=== PATIENT | female | born 1980 | race Caucasian/White ===

== ENCOUNTER 2017-03-26 18:07 | Emergency (ER) | payer OTHER ==
[~2017-03-26] VITALS: Ht 160 cm; Wt 83.9 kg
[~2017-03-26 18:07] MED LIST: LEVO50TA86 PO; METF-410 PO; OXYC-865 PO; PROM-110 PO
[2017-03-26] MEDS ORDERED: DULA0.75 (18:20)
--- NOTE | 2017-03-26 18:23 | ER Report ---
History and Physical Time Seen By MD: 18:22 Hx. of Stated Complaint: PT NOTED EPIGATRIC PAIN, AT 1720 TODAY. STATES IT RADIATES AROUND BOTH SIDES TO BACK. ONE EPISODE OF N/V HPI/ROS CHIEF COMPLAINT: Upper abdominal pain, nausea HISTORY OF PRESENT ILLNESS: 36-year-old female with a history of GERD, presents ambulatory to the ER with sudden onset of severe epigastric pain radiating around her upper abdomen at approximately 5 PM this evening. She developed severe nausea. She describes a burning sensation radiating up through her chest. Patient denies fever or chills. Patient reports this is a very similar episode. Her previous visit to the ER back in July of this year. She denies consumption of spicy or greasy food. She denies alcohol ingestion. She denies caffeine to excess. She notes no alleviating or exacerbating factors to her pain. REVIEW OF SYSTEMS: Respiratory: No cough, no dyspnea. Cardiovascular: No chest pain, no palpitations. Gastrointestinal: As above Musculoskeletal: As above Allergies: Coded Allergies: No Known Drug Allergies (Unverified , 03/26/17) Home Meds Active Scripts Ondansetron Hcl (ZOFRAN) 4 Mg Tablet, 4 MG PO Q6H Y for NAUSEA/VOMITING, #12 Prov:SYDNEY MAHMOOD DO 03/26/17 Oxycodone Hcl/Acetaminophen (PERCOCET 5-325 MG TABLET) 1 Each Tablet, 1 EACH PO Q4-6H Y for PAIN, #15 Prov:ELASDYNEY Pugh DO 03/26/17 Reported Medications Dulaglutide (Trulicity) 0.75 Mg/0.5 Ml Pen.injctr, WEEKLY 03/26/17 Metformin Hcl (METFORMIN HCL) 500 Mg Tablet, 2 TAB PO BID, TAB 08/07/16 Levothyroxine Sodium (LEVOTHYROXINE SODIUM) 50 Mcg Tablet, 100 MCG PO QDAY, TAB 08/07/16 Discontinued Scripts Promethazine Hcl (PROMETHAZINE HCL) 25 Mg Tablet, 25 MG PO Q4H Y for NAUSEA/ VOMITING, #12 TAB Prov:SYDNEY MAHMOOD DO 08/08/16 Oxycodone Hcl/Acetaminophen (PERCOCET 5-325 MG TABLET) 1 Each Tablet, 1 EACH PO Q4-6H Y for PAIN, #12 Prov:SYDNEY MAHMOOD DO 08/08/16 Past Medical/Surgical History Past medical history: Hypothyroidism, polycystic ovarian syndrome, type II diabetes, GERD Reviewed Nurses Notes: Yes Old Medical Records Reviewed: Yes Constitutional Vital Sign - Last 24 Hours 03/26/17 03/26/17 03/26/17 03/26/17 18:13 18:45 19:00 19:15 Temp 98.0 Pulse 87 89 77 82 Resp 20 B/P (MAP) 127/73 117/63 (81) Pulse Ox 94 76 95 89 O2 Delivery Room Air 03/26/17 03/26/17 03/26/17 19:30 19:45 20:15 Pulse 84 91 88 Resp 14 B/P (MAP) 107/63 (78) 111/56 (74) Pulse Ox 87 84 92 O2 Delivery Room Air Physical Exam General Appearance: The patient is alert, has no immediate need for airway protection and no current signs of toxicity. Moderate distress, vital signs stable, afebrile HEENT: Pupils equal and round no injection. Oropharynx without redness or exudate, mucous members are moist Respiratory: Chest is non tender, lungs are clear to auscultation. Cardiac: regular rate and rhythm Gastrointestinal: Abdomen is soft, moderate epigastric tenderness, no masses, bowel sounds normal. Bilateral mild CVA tenderness Musculoskeletal: Neck: Neck is supple and non tender. No lymphadenopathy Extremities have full range of motion and are non tender. Skin: No rashes or lesions. DIFFERENTIAL DIAGNOSIS: After history and physical exam differential diagnosis was considered for abdominal pain including but not limited to appendicitis, cholecystitis, gastritis, pancreatitis, food poisoning, and urinary tract infection. Medical Decision Making Data Points Result Diagram: 03/26/17 18203/26/17 182 Laboratory Hematology Test 03/26/17 18:10 03/26/17 18:25 Urine Color Yellow Urine Clarity Cloudy Urine pH 6.0 pH (4.8-9.5) Urine Specific [place] 1.027 Urine Protein 30 mg/dL (NEGATIVE) Urine Glucose (UA) Negative mg/dL (NEGATIVE) Urine Ketones Trace mg/dL (NEGATIVE) Urine Blood Negative (NEGATIVE) Urine Nitrite Negative (NEGATIVE) Urine Bilirubin Negative (NEGATIVE) Urine Urobilinogen 2.0 mg/dL (0.2-1.9) Urine Leukocyte Esterase Trace (NEGATIVE) Urine RBC 2 /HPF (0-2/HPF) Urine WBC 4 /HPF (0-5/HPF) Urine Squamous Epithelial Cells Many /LPF (</=FEW) Urine Bacteria Few /HPF (NONE-FEW) Urine Mucus Few /HPF (NONE-FEW) Red Blood Count 5.58 M/uL (4.17-5.56) Mean Corpuscular Volume 71.2 fL (80.0-96.0) Mean Corpuscular Hemoglobin 23.0 pg (26.0-33.0) Mean Corpuscular Hemoglobin Concent 32.4 g/dL (32.0-36.0) Red Cell Distribution Width 18.1 % (11.5-14.5) Mean Platelet Volume 9.9 fL (7.2-11.1) Neutrophils (%) (Auto) 55.8 % (39.4-72.5) Lymphocytes (%) (Auto) 32.9 % (17.6-49.6) Monocytes (%) (Auto) 8.0 % (4.1-12.4) Eosinophils (%) (Auto) 2.2 % (0.4-6.7) Basophils (%) (Auto) 1.1 % (0.3-1.4) Nucleated RBC Relative Count (auto) 0.0 /100WBC Neutrophils # (Auto) 6.0 K/uL (2.0-7.4) Lymphocytes # (Auto) 3.5 K/uL (1.3-3.6) Monocytes # (Auto) 0.9 K/uL (0.3-1.0) Eosinophils # (Auto) 0.2 K/uL (0.0-0.5) Basophils # (Auto) 0.1 K/uL (0.0-0.1) Nucleated RBC Absolute Count (auto) 0.00 K/uL Sodium Level 135 mmol/L (137-145) Potassium Level 3.7 mmol/L (3.5-5.0) Chloride Level 98 mmol/L (98-107) Carbon Dioxide Level 28 mmol/L (22-31) Blood Urea Nitrogen 10 mg/dl (7-18) Creatinine 0.50 mg/dl (0.52-1.04) Glomerular Filtration Rate Calc > 60.0 Random Glucose 82 mg/dl (75-110) Calcium Level 9.2 mg/dl (8.4-10.2) Total Bilirubin 0.4 mg/dl (0.2-1.3) Aspartate Amino Transf (AST/SGOT) 44 U/L (0-35) Alanine Aminotransferase (ALT/SGPT) 65 U/L (0-56) Alkaline Phosphatase 95 U/L (0-126) Total Protein 7.4 gm/dl (6.3-8.2) Albumin 3.9 g/dl (3.5-5.0) Amylase Level 101 U/L (0-110) Lipase 450 U/L (23-300) Human Chorionic Gonadotropin, Qual Negative (NEGATIVE) Chemistry Test 03/26/17 18:10 03/26/17 18:25 Urine Color Yellow Urine Clarity Cloudy Urine pH 6.0 pH (4.8-9.5) Urine Specific [place] 1.027 Urine Protein 30 mg/dL (NEGATIVE) Urine Glucose (UA) Negative mg/dL (NEGATIVE) Urine Ketones Trace mg/dL (NEGATIVE) Urine Blood Negative (NEGATIVE) Urine Nitrite Negative (NEGATIVE) Urine Bilirubin Negative (NEGATIVE) Urine Urobilinogen 2.0 mg/dL (0.2-1.9) Urine Leukocyte Esterase Trace (NEGATIVE) Urine RBC 2 /HPF (0-2/HPF) Urine WBC 4 /HPF (0-5/HPF) Urine Squamous Epithelial Cells Many /LPF (</=FEW) Urine Bacteria Few /HPF (NONE-FEW) Urine Mucus Few /HPF (NONE-FEW) White Blood Count 10.7 k/uL (4.5-11.0) Red Blood Count 5.58 M/uL (4.17-5.56) Hemoglobin 12.8 g/dL (12.0-16.0) Hematocrit 39.7 % (34.0-47.0) Mean Corpuscular Volume 71.2 fL (80.0-96.0) Mean Corpuscular Hemoglobin 23.0 pg (26.0-33.0) Mean Corpuscular Hemoglobin Concent 32.4 g/dL (32.0-36.0) Red Cell Distribution Width 18.1 % (11.5-14.5) Platelet Count 202 K/uL (150-450) Mean Platelet Volume 9.9 fL (7.2-11.1) Neutrophils (%) (Auto) 55.8 % (39.4-72.5) Lymphocytes (%) (Auto) 32.9 % (17.6-49.6) Monocytes (%) (Auto) 8.0 % (4.1-12.4) Eosinophils (%) (Auto) 2.2 % (0.4-6.7) Basophils (%) (Auto) 1.1 % (0.3-1.4) Nucleated RBC Relative Count (auto) 0.0 /100WBC Neutrophils # (Auto) 6.0 K/uL (2.0-7.4) Lymphocytes # (Auto) 3.5 K/uL (1.3-3.6) Monocytes # (Auto) 0.9 K/uL (0.3-1.0) Eosinophils # (Auto) 0.2 K/uL (0.0-0.5) Basophils # (Auto) 0.1 K/uL (0.0-0.1) Nucleated RBC Absolute Count (auto) 0.00 K/uL Glomerular Filtration Rate Calc > 60.0 Calcium Level 9.2 mg/dl (8.4-10.2) Total Bilirubin 0.4 mg/dl (0.2-1.3) Aspartate Amino Transf (AST/SGOT) 44 U/L (0-35) Alanine Aminotransferase (ALT/SGPT) 65 U/L (0-56) Alkaline Phosphatase 95 U/L (0-126) Total Protein 7.4 gm/dl (6.3-8.2) Albumin 3.9 g/dl (3.5-5.0) Amylase Level 101 U/L (0-110) Lipase 450 U/L (23-300) Human Chorionic Gonadotropin, Qual Negative (NEGATIVE) Urinalysis Test 03/26/17 18:10 Urine Color Yellow Urine Clarity Cloudy Urine pH 6.0 pH (4.8-9.5) Urine Specific [place] 1.027 Urine Protein 30 mg/dL (NEGATIVE) Urine Glucose (UA) Negative mg/dL (NEGATIVE) Urine Ketones Trace mg/dL (NEGATIVE) Urine Blood Negative (NEGATIVE) Urine Nitrite Negative (NEGATIVE) Urine Bilirubin Negative (NEGATIVE) Urine Urobilinogen 2.0 mg/dL (0.2-1.9) Urine Leukocyte Esterase Trace (NEGATIVE) Urine RBC 2 /HPF (0-2/HPF) Urine WBC 4 /HPF (0-5/HPF) Urine Squamous Epithelial Cells Many /LPF (</=FEW) Urine Bacteria Few /HPF (NONE-FEW) Urine Mucus Few /HPF (NONE-FEW) ED Course/Re-evaluation Clinical Indication for ER IV: Hydration, IV Access ED Course Patient was admitted to an examination room. H&P was done. The dental diagnoses was considered. On clinical examination. Patient has moderate epigastric tenderness. She has pain in the back. She has bilateral CVA tenderness. Patient's treated with IV fluids, antiemetics, pain medication in the GI cocktail. Her diagnostic studies return. Elevated lipase of 450 suggesting mild acute pancreatitis. Patient reports feel much better after an additional dose of morphine for pain relief. Patient's discharged home and advised to follow-up with primary care for outpatient ultrasound to rule out gallstones. She denies a history of alcohol as etiology of her pancreatitis. Patient was given perceptions for Percocet and Zofran. She was cautioned return to the ER for any worsening. Decision to Disposition Date: Mar 26, 2017 Decision to Disposition Time: 19:24 Depart Departure Latest Vital Signs Vital Signs Date Time Temp Pulse Resp B/P (MAP) Pulse Ox O2 Delivery O2 Flow Rate FiO2 03/26/17 20:15 88 14 111/56 (74) 92 Room Air 03/26/17 18:13 98.0 Impression: Primary Impression: Pancreatitis Condition: Improved Disposition: HOME OR SELF-CARE Referrals: VINCENT DELGADO MD (PCP) ALPA SALDANA MD, FARRUKH MD New Scripts Ondansetron Hcl (ZOFRAN) 4 Mg Tablet 4 MG PO Q6H Y for NAUSEA/VOMITING, #12 Prov: SYDNEY MAHMOOD DO 03/26/17 Oxycodone Hcl/Acetaminophen (PERCOCET 5-325 MG TABLET) 1 Each Tablet 1 EACH PO Q4-6H Y for PAIN, #15 Prov: SYDNEY MAHMOOD DO 03/26/17 Patient Instructions: Clear Liquid Diet (ED), Pancreatitis (ED) Additional Instructions: Follow clear liquid diet for 24 hours, then advance to the brat diet, bananas, rice, applesauce, toast Avoid fatty food, greasy food vegetables or dairy Follow-up with Dr. Saldana or Alexander for follow-up and outpatient ultrasound to rule out gallstones, their information was provided. Problem Qualifiers Primary Impression: Pancreatitis Chronicity: acute Pancreatitis type: unspecified pancreatitis type Acute pancreatitis complication: no infection or necrosis Qualified Codes: K85.90 - Acute pancreatitis without necrosis or infection, unspecified SYDNEY MAHMOOD DO Mar 26, 2017 18:23
[2017-03-26] MEDS ORDERED: ONDANSETRON 4 MG/2 ML VIAL IVP ONE (18:30)
[2017-03-26] MEDS ORDERED: KETOROLAC 30 MG/ML VIAL IVP ONE (18:30)
[2017-03-26] MEDS ORDERED: LIDOCAINE 2% VISC SLN 15ML UDC PO ONE (18:30)
[2017-03-26] MEDS ORDERED: fentaNYL CITR 100 MCG/2 ML AMP IVP ONE (18:30)
[2017-03-26] MEDS ORDERED: MAG HYD/AL HYD/SIMETH 30ML UDC PO ONE (18:30)
[2017-03-26 18:44] LABS: PLATELET COUNT, AUTOMATED 202 K/uL (150-450)
[2017-03-26] MEDS ORDERED: MORPHINE(*) 4 MG/ML SDV IVP ONE (19:05)
[2017-03-26] MEDS ORDERED: NS(*) 0.9% 1000 ML BAG 1,000 ML IV ONE (19:05)
[2017-03-26] MEDS ORDERED: MORPHINE 4 MG/ML SYR ONE (19:10)
[2017-03-26] MEDS ORDERED: ONDA4TAB97 PO (19:26)
[2017-03-26] MEDS ORDERED: OXYC-865 PO (19:26)
[2017-03-26 20:15] VITALS: BP 111/56
[2017-03-26] MEDS ORDERED: oxyCODONE/ACETAMIN 5/325MG TH 2 TAB/BOTTLE PO ONE (20:25)
[2017-03-26] MEDS ORDERED: ONDANSETRON 4 MG ODT TH SL ONE (20:25)
== END 2017-03-26 20:25 | disposition home or self-care (01) ==
LOC: ER 18:52
DX: K85.90 Acute pancreatitis without necrosis or infection, unspecified (principal)
CPT/HCPCS: 81001; 82150; 83690; 84703; 85025; 96361; 96374; 96375; 99284; J1885; J2270; J2405; J3010; J7030; 82040; 82247; 82310; 82374; 82435; 82565; 82947; 84075; 84132; 84155; 84295; 84450; 84460; 84520

== ENCOUNTER 2017-03-31 21:44 | Emergency (ER) | payer OTHER ==
[~2017-03-31] VITALS: Ht 160 cm; Wt 83.9 kg
[2017-03-31] MEDS: PANTOPRAZOLE SOD(*)40 MG VIAL 40 MG in NS(*) 0.9% 100 ML BAG 100 ML IVPB ONE ×2 (00:20→02:00)
[~2017-03-31 21:44] MED LIST changes: +DULA0.75; +ONDA4TAB97 PO
[2017-03-31] MEDS ORDERED: NS(*) 0.9% 1000 ML BAG 1,000 ML IV ONE (22:06)
--- NOTE | 2017-03-31 22:06 | ER Report ---
History and Physical Time Seen By MD: 22:04 Hx. of Stated Complaint: pt reports severe epigastric pain and back pain; in ER saturday night with same pain and diagnosed with pancreatitis and was told she would need gallbladder out soon HPI/ROS CHIEF COMPLAINT: Epigastric and right upper quadrant pain HISTORY OF PRESENT ILLNESS: 36-year-old female returns complaining of worsening pain after being seen here 4 days ago with mild pancreatitis. She was discharged home with antiemetics and pain medication and advised a clear liquid diet. Patient was advised to follow-up with primary care for outpatient ultrasound. Patient's pain came back yesterday after running out of pain medication. She notes no fever or chills. She has nausea and vomiting. She denies diarrhea. She notes 8/10 right upper quadrant pain with radiation to her back. REVIEW OF SYSTEMS: Respiratory: No cough, no dyspnea. Cardiovascular: No chest pain, no palpitations. Gastrointestinal: As above Musculoskeletal: As above Allergies: Coded Allergies: No Known Drug Allergies (Unverified , 03/26/17) Home Meds Active Scripts Ondansetron Hcl (ZOFRAN) 4 Mg Tablet, 4 MG PO Q6H Y for NAUSEA/VOMITING, #10 Prov:SYDNEY MAHMOOD DO 04/01/17 Oxycodone Hcl/Acetaminophen 10-325 Mg (ENDOCET 10-325 MG TABLET) 1 Each Tablet, 1 EACH PO Q4H Y for PAIN, #15 TAB Prov:SYDNEY MAHMOOD DO 04/01/17 Reported Medications Dulaglutide (Trulicity) 0.75 Mg/0.5 Ml Pen.injctr, WEEKLY 03/26/17 Metformin Hcl (METFORMIN HCL) 500 Mg Tablet, 2 TAB PO BID, TAB 08/07/16 Levothyroxine Sodium (LEVOTHYROXINE SODIUM) 50 Mcg Tablet, 100 MCG PO QDAY, TAB 08/07/16 Discontinued Scripts Ondansetron Hcl (ZOFRAN) 4 Mg Tablet, 4 MG PO Q6H Y for NAUSEA/VOMITING, #12 Prov:SYDNEY MAHMOOD DO 03/26/17 Oxycodone Hcl/Acetaminophen (PERCOCET 5-325 MG TABLET) 1 Each Tablet, 1 EACH PO Q4-6H Y for PAIN, #15 Prov:SYDNEY MAHMOOD DO 03/26/17 Promethazine Hcl (PROMETHAZINE HCL) 25 Mg Tablet, 25 MG PO Q4H Y for NAUSEA/ VOMITING, #12 TAB Prov:SYDNEY MAHMOOD DO 08/08/16 Oxycodone Hcl/Acetaminophen (PERCOCET 5-325 MG TABLET) 1 Each Tablet, 1 EACH PO Q4-6H Y for PAIN, #12 Prov:SYDNEY MAHMOOD DO 08/08/16 Past Medical/Surgical History Pancreatitis Reviewed Nurses Notes: Yes Old Medical Records Reviewed: Yes Constitutional Vital Sign - Last 24 Hours 03/31/17 03/31/17 03/31/17 03/31/17 21:51 21:58 21:59 22:14 Temp 98.0 Pulse 66 65 68 Resp 20 B/P (MAP) 137/75 137/75 (95) Pulse Ox 96 96 93 O2 Delivery Room Air 03/31/17 03/31/17 03/31/17 03/31/17 22:27 22:29 22:40 22:44 Pulse 66 67 B/P (MAP) 124/74 (91) 127/80 (96) Pulse Ox 75 95 03/31/17 03/31/17 03/31/17 03/31/17 22:49 22:54 22:59 23:00 Pulse 65 58 61 B/P (MAP) 113/78 (90) Pulse Ox 95 88 92 03/31/17 03/31/17 03/31/17 03/31/17 23:04 23:09 23:14 23:34 Pulse 56 55 49 57 Pulse Ox 86 93 96 95 03/31/17 03/31/17 03/31/17 03/31/17 23:39 23:40 23:44 23:49 Pulse 68 65 67 B/P (MAP) 109/65 (80) Pulse Ox 85 91 88 03/31/17 03/31/17 04/01/17 04/01/17 23:54 23:59 00:00 00:04 Pulse 64 76 71 B/P (MAP) 134/91 (105) Pulse Ox 88 89 90 04/01/17 04/01/17 04/01/17 04/01/17 00:09 00:14 00:19 00:20 Pulse 64 65 54 B/P (MAP) 113/72 (86) Pulse Ox 85 98 04/01/17 04/01/17 04/01/17 04/01/17 00:24 00:29 00:34 00:39 Pulse 62 55 50 51 Pulse Ox 98 95 97 97 04/01/17 04/01/17 04/01/17 04/01/17 00:40 00:44 00:49 00:54 Pulse 55 61 58 B/P (MAP) 113/75 (88) Pulse Ox 98 97 97 04/01/17 04/01/17 04/01/17 04/01/17 00:59 01:00 01:04 01:09 Pulse 58 53 55 B/P (MAP) 120/67 (84) Pulse Ox 98 99 97 04/01/17 04/01/17 04/01/17 04/01/17 01:14 01:20 01:24 01:29 Pulse 57 ??? 72 B/P (MAP) 112/70 (84) Pulse Ox 97 93 04/01/17 04/01/17 01:34 01:41 Pulse 60 88 Resp 16 B/P (MAP) 112/72 (85) Pulse Ox 90 O2 Delivery Room Air Physical Exam General Appearance: The patient is alert, has no immediate need for airway protection and no current signs of toxicity. Vital signs stable, afebrile, pulse ox normal HEENT: Pupils equal and round no injection. Oropharynx without redness or exudate, mucous members are moist Respiratory: Chest is non tender, lungs are clear to auscultation. Cardiac: regular rate and rhythm Gastrointestinal: Abdomen is soft, moderate right upper quadrant and epigastric tenderness, positive Hall sign, no masses, bowel sounds normal. Musculoskeletal: Neck: Neck is supple and non tender. No lymphadenopathy Extremities have full range of motion and are non tender. Skin: No rashes or lesions. DIFFERENTIAL DIAGNOSIS: After history and physical exam differential diagnosis was considered for abdominal pain including but not limited to appendicitis, cholecystitis, gastritis and urinary tract infection. Medical Decision Making Data Points Result Diagram: 03/31/17222503/31/172225 Laboratory Hematology Test 03/31/17 00:00 03/31/17 22:26 Human Chorionic Gonadotropin, Qual Negative (NEGATIVE) Red Blood Count 5.08 M/uL (4.17-5.56) Mean Corpuscular Volume 72.7 fL (80.0-96.0) Mean Corpuscular Hemoglobin 23.0 pg (26.0-33.0) Mean Corpuscular Hemoglobin Concent 31.6 g/dL (32.0-36.0) Red Cell Distribution Width 18.6 % (11.5-14.5) Mean Platelet Volume 9.4 fL (7.2-11.1) Neutrophils (%) (Auto) 51.1 % (39.4-72.5) Lymphocytes (%) (Auto) 40.1 % (17.6-49.6) Monocytes (%) (Auto) 5.9 % (4.1-12.4) Eosinophils (%) (Auto) 2.4 % (0.4-6.7) Basophils (%) (Auto) 0.5 % (0.3-1.4) Nucleated RBC Relative Count (auto) 0.0 /100WBC Neutrophils # (Auto) 6.3 K/uL (2.0-7.4) Lymphocytes # (Auto) 4.9 K/uL (1.3-3.6) Monocytes # (Auto) 0.7 K/uL (0.3-1.0) Eosinophils # (Auto) 0.3 K/uL (0.0-0.5) Basophils # (Auto) 0.1 K/uL (0.0-0.1) Nucleated RBC Absolute Count (auto) 0.00 K/uL Urine Color Straw Urine Clarity Clear Urine pH 8.0 pH (4.8-9.5) Urine Specific [place] 1.017 Urine Protein Negative mg/dL (NEGATIVE) Urine Glucose (UA) Negative mg/dL (NEGATIVE) Urine Ketones Negative mg/dL (NEGATIVE) Urine Blood Negative (NEGATIVE) Urine Nitrite Negative (NEGATIVE) Urine Bilirubin Negative (NEGATIVE) Urine Urobilinogen Negative mg/dL (0.2-1.9) Urine Leukocyte Esterase Negative (NEGATIVE) Urine RBC None /HPF (0-2/HPF) Urine WBC 1 /HPF (0-5/HPF) Urine Squamous Epithelial Cells Many /LPF (</=FEW) Urine Transitional Epithelial Cells Few /LPF (NONE-FEW) Urine Bacteria Few /HPF (NONE-FEW) Urine Mucus None /HPF (NONE-FEW) Sodium Level 138 mmol/L (137-145) Potassium Level 3.4 mmol/L (3.5-5.0) Chloride Level 105 mmol/L (98-107) Carbon Dioxide Level 24 mmol/L (22-31) Blood Urea Nitrogen 10 mg/dl (7-18) Creatinine 0.50 mg/dl (0.52-1.04) Glomerular Filtration Rate Calc > 60.0 Random Glucose 98 mg/dl (75-110) Lactate 2.0 mmol/L (0.7-2.1) Calcium Level 8.6 mg/dl (8.4-10.2) Total Bilirubin 0.2 mg/dl (0.2-1.3) Aspartate Amino Transf (AST/SGOT) 41 U/L (0-35) Alanine Aminotransferase (ALT/SGPT) 75 U/L (0-56) Alkaline Phosphatase 103 U/L (0-126) Total Protein 6.5 gm/dl (6.3-8.2) Albumin 3.3 g/dl (3.5-5.0) Amylase Level 106 U/L (0-110) Lipase 295 U/L (23-300) Chemistry Test 03/31/17 00:00 03/31/17 22:26 Human Chorionic Gonadotropin, Qual Negative (NEGATIVE) White Blood Count 12.3 k/uL (4.5-11.0) Red Blood Count 5.08 M/uL (4.17-5.56) Hemoglobin 11.7 g/dL (12.0-16.0) Hematocrit 36.9 % (34.0-47.0) Mean Corpuscular Volume 72.7 fL (80.0-96.0) Mean Corpuscular Hemoglobin 23.0 pg (26.0-33.0) Mean Corpuscular Hemoglobin Concent 31.6 g/dL (32.0-36.0) Red Cell Distribution Width 18.6 % (11.5-14.5) Platelet Count 229 K/uL (150-450) Mean Platelet Volume 9.4 fL (7.2-11.1) Neutrophils (%) (Auto) 51.1 % (39.4-72.5) Lymphocytes (%) (Auto) 40.1 % (17.6-49.6) Monocytes (%) (Auto) 5.9 % (4.1-12.4) Eosinophils (%) (Auto) 2.4 % (0.4-6.7) Basophils (%) (Auto) 0.5 % (0.3-1.4) Nucleated RBC Relative Count (auto) 0.0 /100WBC Neutrophils # (Auto) 6.3 K/uL (2.0-7.4) Lymphocytes # (Auto) 4.9 K/uL (1.3-3.6) Monocytes # (Auto) 0.7 K/uL (0.3-1.0) Eosinophils # (Auto) 0.3 K/uL (0.0-0.5) Basophils # (Auto) 0.1 K/uL (0.0-0.1) Nucleated RBC Absolute Count (auto) 0.00 K/uL Urine Color Straw Urine Clarity Clear Urine pH 8.0 pH (4.8-9.5) Urine Specific [place] 1.017 Urine Protein Negative mg/dL (NEGATIVE) Urine Glucose (UA) Negative mg/dL (NEGATIVE) Urine Ketones Negative mg/dL (NEGATIVE) Urine Blood Negative (NEGATIVE) Urine Nitrite Negative (NEGATIVE) Urine Bilirubin Negative (NEGATIVE) Urine Urobilinogen Negative mg/dL (0.2-1.9) Urine Leukocyte Esterase Negative (NEGATIVE) Urine RBC None /HPF (0-2/HPF) Urine WBC 1 /HPF (0-5/HPF) Urine Squamous Epithelial Cells Many /LPF (</=FEW) Urine Transitional Epithelial Cells Few /LPF (NONE-FEW) Urine Bacteria Few /HPF (NONE-FEW) Urine Mucus None /HPF (NONE-FEW) Glomerular Filtration Rate Calc > 60.0 Lactate 2.0 mmol/L (0.7-2.1) Calcium Level 8.6 mg/dl (8.4-10.2) Total Bilirubin 0.2 mg/dl (0.2-1.3) Aspartate Amino Transf (AST/SGOT) 41 U/L (0-35) Alanine Aminotransferase (ALT/SGPT) 75 U/L (0-56) Alkaline Phosphatase 103 U/L (0-126) Total Protein 6.5 gm/dl (6.3-8.2) Albumin 3.3 g/dl (3.5-5.0) Amylase Level 106 U/L (0-110) Lipase 295 U/L (23-300) Urinalysis Test 03/31/17 22:26 Urine Color Straw Urine Clarity Clear Urine pH 8.0 pH (4.8-9.5) Urine Specific [place] 1.017 Urine Protein Negative mg/dL (NEGATIVE) Urine Glucose (UA) Negative mg/dL (NEGATIVE) Urine Ketones Negative mg/dL (NEGATIVE) Urine Blood Negative (NEGATIVE) Urine Nitrite Negative (NEGATIVE) Urine Bilirubin Negative (NEGATIVE) Urine Urobilinogen Negative mg/dL (0.2-1.9) Urine Leukocyte Esterase Negative (NEGATIVE) Urine RBC None /HPF (0-2/HPF) Urine WBC 1 /HPF (0-5/HPF) Urine Squamous Epithelial Cells Many /LPF (</=FEW) Urine Transitional Epithelial Cells Few /LPF (NONE-FEW) Urine Bacteria Few /HPF (NONE-FEW) Urine Mucus None /HPF (NONE-FEW) EKG/Imaging Imaging Results: CT scan of the abdomen and pelvis with IV contrast was obtained. The results of the study are EXAMINATION: CT Abdomen and Pelvis With Contrast 03/31/2017 10:06 PM HISTORY: severe abd pain dx pancreatitis TECHNIQUE: Spiral scan was through the abdomen and pelvis during injection of nonionic iodinated intravenous contrast. Contrast: 75 mL of IV Isovue 370. One of the following dose optimization techniques was utilized in the performance of this exam: Automated exposure control; adjustment of the mA and/ or kV according to the patient's size; or use of an iterative reconstruction technique. Specific details can be referenced in the facility's radiology CT exam operational policy. COMPARISON STUDIES: none. FINDINGS: Liver / biliary: Multiple gallstones in the gallbladder measuring up to 1.8 cm. Color wall is not clearly inflamed and there is no pericholecystic fluid. CBD measures 5 mm. No visible choledocholithiasis. Incidental focal fat or perfusional variation in the left lobe along the fissure for ligamentum teres. Craniocaudal dimension of the liver greater than 20 cm. No lobulation of capsular contours are other cirrhotic features. Pancreas: Gland enhances normally. No ductal dilatation. No significant peripancreatic fluid or infiltration. Spleen: negative Adrenal glands: negative Kidneys / retroperitoneum: negative Pelvic structures: Dominant but functional appearing 2.1 cm follicle in the left ovary. Bowel / peritoneum / mesenteries: No acute finding. No obstruction. Normal appendix. No ascites or free air. Vessels: negative Musculoskeletal / Body wall: negative Lymph node assessment: negative Lower chest: negative IMPRESSION: 1. No CT findings of pancreatitis. 2. Multiple gallstones in the gallbladder. Gallbladder is not clearly inflamed by CT. No biliary dilatation or visible choledocholithiasis. 3. Mild nonspecific hepatomegaly. The study was read by the radiologist. I viewed the images myself on the PACS system. ED Course/Re-evaluation Clinical Indication for ER IV: Hydration, IV Access ED Course Patient was admitted to an examination room. H&P was done. The differential diagnoses was considered. On clinical examination. Patient has return of her abdominal pain. She had a mild elevation of her lipase to 450. She was advised to follow-up as an outpatient for an ultrasound. A portion she's been unable to make it over the holiday weekend. She presents with worsening pain. Repeat diagnostic studies show a lipase is come down to 73. Her white blood cell count is mildly elevated at 12.8. Patient sent for CT scan of the abdomen and pelvis to rule out other findings. CT scan shows gallstones. There is no evidence of acute cholecystitis. There is no common bile duct dilation. Patient was offered the option of having contact a surgeon for surgical consultation tonight. However, patient declined. She will elect to follow-up outpatient with one of our local surgeons. Information was provided. She's given a perception for Percocet 10 mg and Zofran. She is advised to avoid fatty and greasy food. Decision to Disposition Date: Apr 01, 2017 Decision to Disposition Time: 00:04 Depart Departure Latest Vital Signs Vital Signs Date Time Temp Pulse Resp B/P (MAP) Pulse Ox O2 Delivery O2 Flow Rate FiO2 04/01/17 01:41 88 16 112/72 (85) 90 Room Air 03/31/17 21:51 98.0 Impression: Primary Impression: Gallstones Condition: Improved Disposition: HOME OR SELF-CARE Referrals: MARQUISE RAMIREZ PA-C (PCP) LIZA PAULA MD, JOHN A MD New Scripts Ondansetron Hcl (ZOFRAN) 4 Mg Tablet 4 MG PO Q6H Y for NAUSEA/VOMITING, #10 Prov: SYDNEY MAHMOOD DO 04/01/17 Oxycodone Hcl/Acetaminophen 10-325 Mg (ENDOCET 10-325 MG TABLET) 1 Each Tablet 1 EACH PO Q4H Y for PAIN, #15 TAB Prov: SYDNEY MAHMOOD DO 04/01/17 Patient Instructions: Gallstones (ED) Additional Instructions: Take ibuprofen 200 mg 3 tablets 3 times a day with food Avoid fatty or greasy food Take Prilosec 20 mg per day to reduce her stomach acid Follow-up with general surgery, Dr. Paula or Dr. Arellano their information is provided SYDNEY MAHMOOD DO Mar 31, 2017 22:06
[2017-03-31] MEDS ORDERED: PROMETHAZINE 25 MG/ML 1 ML AMP IVP ONE (22:10)
[2017-03-31] MEDS ORDERED: ONDANSETRON 4 MG/2 ML VIAL IVP ONE (22:10)
[2017-03-31] MEDS ORDERED: HYDROmorphone(ER ONLY) 1 MG/ML IVP ONE ×2 (22:10→23:05)
[2017-03-31 22:33] LABS: PLATELET COUNT, AUTOMATED 229 K/uL (150-450)
[2017-03-31] MEDS ORDERED: NS 0.9% 50 ML VIAL 50 ML ONE (22:47)
[2017-03-31] MEDS ORDERED: IOPAMIDOL 76% 75 ML INFUS BTL 75 ML ONE (22:47)
[2017-03-31] MEDS ORDERED: MAG HYD/AL HYD/SIMETH 30ML UDC PO ONE (23:05)
[2017-03-31] MEDS ORDERED: LIDOCAINE 2% VISC SLN 15ML UDC PO ONE (23:05)
--- NOTE | 2017-03-31 23:53 | RADIOLOGY IMAGING REPORT ---
FACILITY: [facility] PATIENT NAME: Violet Lambert : 1980 MR: [id number] V: [id number] EXAM DATE: ORDERING PHYSICIAN: SYDNEY MAHMOOD TECHNOLOGIST: Location: [facility] Patient: Violet Lambert : 1980 Visit/Account:[id number] Date of Sevice: 03/31/2017 EXAMINATION: CT Abdomen and Pelvis With Contrast 03/31/2017 10:06 PM HISTORY: severe abd pain dx pancreatitis TECHNIQUE: Spiral scan was through the abdomen and pelvis during injection of nonionic iodinated in travenous contrast. Contrast: 75 mL of IV Isovue 370. One of the following dose optimization techniques was utilized in the performance of this exam: Autom ated exposure control; adjustment of the mA and/or kV according to the patient's size; or use of an i terative reconstruction technique. Specific details can be referenced in the facility's radiology C T exam operational policy. COMPARISON STUDIES: none. FINDINGS: Liver / biliary: Multiple gallstones in the gallbladder measuring up to 1.8 cm. Color wall is not femi ramesh inflamed and there is no pericholecystic fluid. CBD measures 5 mm. No visible choledocholithiasi s. Incidental focal fat or perfusional variation in the left lobe along the fissure for ligamentum te res. Craniocaudal dimension of the liver greater than 20 cm. No lobulation of capsular contours are o ther cirrhotic features. Pancreas: Gland enhances normally. No ductal dilatation. No significant peripancreatic fluid or infil tration. Spleen: negative Adrenal glands: negative Kidneys / retroperitoneum: negative Pelvic structures: Dominant but functional appearing 2.1 cm follicle in the left ovary. Bowel / peritoneum / mesenteries: No acute finding. No obstruction. Normal appendix. No ascites or fr ee air. Vessels: negative Musculoskeletal / Body wall: negative Lymph node assessment: negative Lower chest: negative IMPRESSION: 1. No CT findings of pancreatitis. 2. Multiple gallstones in the gallbladder. Gallbladder is not clearly inflamed by CT. No biliary dila tation or visible choledocholithiasis. 3. Mild nonspecific hepatomegaly. Report Dictated By: Jonah Han MD at 03/31/2017 11:43 PM Report E-Signed By: Jonah Han MD at 03/31/2017 11:49 PM WSN:[id number]
[2017-04-01] MEDS ORDERED: KETOROLAC 30 MG/ML VIAL IVP ONE (00:05)
[2017-04-01] MEDS ORDERED: OXYC-857 PO (00:06)
[2017-04-01] MEDS ORDERED: ONDA4TAB97 PO (00:06)
[2017-04-01] MEDS ORDERED: oxyCODONE/ACETAMIN 5/325MG TH 2 TAB/BOTTLE PO ONE ×2 (01:15)
[2017-04-01 01:41] VITALS: BP 112/72
== END 2017-04-01 01:44 | disposition home or self-care (01) ==
LOC: ER 22:00
DX: K80.80 Other cholelithiasis without obstruction (principal)
CPT/HCPCS: 36415; 74177; 81001; 82150; 83605; 83690; 84703; 85025; 96361; 96365; 96375; 99284; C9113; J1170; J1885; J2405; J2550; J7030; J7050; Q9967; 82040; 82247; 82310; 82374; 82435; 82565; 82947; 84075; 84132; 84155; 84295; 84450; 84460; 84520

== ENCOUNTER 2017-04-04 19:41 | Observation (INO) | payer OTHER ==
[~2017-04-04] VITALS: Ht 160 cm; Wt 90.5 kg
[~2017-04-04 19:41] MED LIST changes: +OXYC-857 PO
[2017-04-04] MEDS ORDERED: ONDANSETRON 4 MG/2 ML VIAL IVP ONE (20:35)
[2017-04-04] MEDS ORDERED: fentaNYL CITR 100 MCG/2 ML AMP IVP ONE (20:35)
[2017-04-04] MEDS ORDERED: NS(*) 0.9% 1000 ML BAG 1,000 ML IV ONE (20:35)
--- NOTE | 2017-04-04 20:47 | ER Report ---
History and Physical Time Seen By MD: 20:41 Hx. of Stated Complaint: PATIENT STATES THAT SHE HAS BEEN HAVING GALBLADDER PROBLEMS; THIS IS THE 3RD TIME SHE HAS BEEN TO THE ER; LAST TIME DR. MAHMOOD WANTED TO ADMIT HER TO HAVE IT REMOVED AND SHE REFUSED (SURENDRA GREEN) HPI/ROS Patient is a 36-year-old female ambulatory to the emergency room states that she 's had midepigastric pain radiating to her back for the last 24 hours has been seen 2 times in the emergency room has been told she has gallbladder disease confirmed by ct scan has appointment with the surgeon next Saturday for evaluation feels like she is more nauseated and the pain is increased tonight his came in for treatment . Last drink iced tea at 8:30 (SURENDRA GREEN) Allergies: Coded Allergies: No Known Drug Allergies (Unverified , 04/05/17) Home Meds Reported Medications Oxycodone Hcl/Acetaminophen (OXYCODONE-ACETAMINOPHEN 10-325) 1 Each Tablet, 1 EACH PO Q4H 04/05/17 Dulaglutide (Trulicity) 0.75 Mg/0.5 Ml Pen.injctr, QWEEK 04/05/17 Levothyroxine Sodium (LEVOTHYROXINE SODIUM) 100 Mcg Tablet, 112 MCG PO QDAY, TAB 04/05/17 Metformin Hcl (METFORMIN HCL) 1,000 Mg Tablet, 1 TAB PO BID, TAB 04/05/17 Discontinued Reported Medications Levothyroxine Sodium (LEVOTHYROXINE SODIUM) 100 Mcg Vial, 100 MCG IVP, VIAL 04/05/17 Dulaglutide (Trulicity) 0.75 Mg/0.5 Ml Pen.injctr, WEEKLY 03/26/17 Metformin Hcl (METFORMIN HCL) 500 Mg Tablet, 2 TAB PO BID, TAB 08/07/16 Levothyroxine Sodium (LEVOTHYROXINE SODIUM) 50 Mcg Tablet, 100 MCG PO QDAY, TAB 08/07/16 Discontinued Scripts Ondansetron Hcl (ZOFRAN) 4 Mg Tablet, 4 MG PO Q6H Y for NAUSEA/VOMITING, #10 Prov:SYDNEY MAHMOOD DO 04/01/17 Oxycodone Hcl/Acetaminophen 10-325 Mg (ENDOCET 10-325 MG TABLET) 1 Each Tablet, 1 EACH PO Q4H Y for PAIN, #15 TAB Prov:SYDNEY MAHMOOD DO 04/01/17 Ondansetron Hcl (ZOFRAN) 4 Mg Tablet, 4 MG PO Q6H Y for NAUSEA/VOMITING, #12 Prov:SYDNEY MAHMOOD DO 03/26/17 Oxycodone Hcl/Acetaminophen (PERCOCET 5-325 MG TABLET) 1 Each Tablet, 1 EACH PO Q4-6H Y for PAIN, #15 Prov:SYDNEY MAHMOOD DO 03/26/17 Past Medical/Surgical History History of PCOS hypothyroidism, type 2 diabetic (SURENDRA GREEN) Reviewed Nurses Notes: Yes Old Medical Records Reviewed: Yes (SURENDRA GREEN) Hx Smoking: No Exposure to Second Hand Smoke?: No Hx Substance Use Disorder: No Hx Alcohol Use: No (SURENDRA GREEN) Family History of: Diabetes (SURENDRA GREEN) Constitutional Vital Sign - Last 24 Hours 04/04/17 04/04/17 04/04/17 04/04/17 19:44 21:03 21:11 21:30 Temp 98.1 Pulse 80 66 Resp 19 B/P (MAP) 96/62 116/62 (80) 116/71 (86) Pulse Ox 98 89 O2 Delivery Room Air 04/04/17 04/04/17 04/04/17 04/04/17 21:41 22:00 22:30 22:41 Pulse 58 77 B/P (MAP) 116/60 (78) 107/59 (75) Pulse Ox 98 94 04/04/17 04/04/17 04/04/17 04/04/17 23:00 23:11 23:30 23:31 Pulse 77 74 B/P (MAP) 113/58 (76) 112/83 (93) Pulse Ox 95 93 04/04/17 04/04/17 04/05/17 23:46 23:51 00:00 Pulse 64 60 B/P (MAP) 108/75 (86) Pulse Ox 91 94 (CRISPIN LEDEZMA MD) Physical Exam 36-year-old female alert and oriented mild distress HEENT head normocephalic/ atraumatic tympanic membranes are non-reddened throat is non-reddened neck is supple no JVD heart rate is regular no murmurs rubs and gallops lungs clear to auscultation abdomen is obese she does have pain mid epigastric radiates to her back positive Hall sign bowel sounds 4 quadrants moves all extremities no peripheral edema (SURENDRA GREEN) Medical Decision Making Data Points Result Diagram: 04/04/17 2100 04/04/17 2100 Laboratory Hematology Test 04/04/17 21:00 Red Blood Count 5.42 M/uL (4.17-5.56) Mean Corpuscular Volume 72.0 fL (80.0-96.0) Mean Corpuscular Hemoglobin 23.2 pg (26.0-33.0) Mean Corpuscular Hemoglobin Concent 32.2 g/dL (32.0-36.0) Red Cell Distribution Width 18.5 % (11.5-14.5) Mean Platelet Volume 9.1 fL (7.2-11.1) Neutrophils (%) (Auto) 57.5 % (39.4-72.5) Lymphocytes (%) (Auto) 34.3 % (17.6-49.6) Monocytes (%) (Auto) 5.7 % (4.1-12.4) Eosinophils (%) (Auto) 2.1 % (0.4-6.7) Basophils (%) (Auto) 0.4 % (0.3-1.4) Nucleated RBC Relative Count (auto) 0.1 /100WBC Neutrophils # (Auto) 7.8 K/uL (2.0-7.4) Lymphocytes # (Auto) 4.7 K/uL (1.3-3.6) Monocytes # (Auto) 0.8 K/uL (0.3-1.0) Eosinophils # (Auto) 0.3 K/uL (0.0-0.5) Basophils # (Auto) 0.1 K/uL (0.0-0.1) Nucleated RBC Absolute Count (auto) 0.01 K/uL Peripheral Blood Smear Y/N Urine Color Yellow Urine Clarity Clear Urine pH 6.0 pH (4.8-9.5) Urine Specific [place] 1.015 Urine Protein Negative mg/dL (NEGATIVE) Urine Glucose (UA) Negative mg/dL (NEGATIVE) Urine Ketones Negative mg/dL (NEGATIVE) Urine Blood Negative (NEGATIVE) Urine Nitrite Negative (NEGATIVE) Urine Bilirubin Negative (NEGATIVE) Urine Urobilinogen Negative mg/dL (0.2-1.9) Urine Leukocyte Esterase Small (NEGATIVE) Urine RBC <1 /HPF (0-2/HPF) Urine WBC 2 /HPF (0-5/HPF) Urine Squamous Epithelial Cells Many /LPF (</=FEW) Urine Bacteria Few /HPF (NONE-FEW) Urine Mucus None /HPF (NONE-FEW) Urine HCG, Qualitative Negative (NEGATIVE) Sodium Level 138 mmol/L (137-145) Potassium Level 4.6 mmol/L (3.5-5.0) Chloride Level 104 mmol/L (98-107) Carbon Dioxide Level 26 mmol/L (22-31) Blood Urea Nitrogen 10 mg/dl (7-18) Creatinine 0.50 mg/dl (0.52-1.04) Glomerular Filtration Rate Calc > 60.0 Random Glucose 105 mg/dl (75-110) Lactate 1.7 mmol/L (0.7-2.1) Calcium Level 9.4 mg/dl (8.4-10.2) Total Bilirubin 0.3 mg/dl (0.2-1.3) Aspartate Amino Transf (AST/SGOT) 23 U/L (0-35) Alanine Aminotransferase (ALT/SGPT) 52 U/L (0-56) Alkaline Phosphatase 106 U/L (0-126) Total Protein 7.3 gm/dl (6.3-8.2) Albumin 3.8 g/dl (3.5-5.0) Amylase Level 87 U/L (0-110) Lipase 183 U/L (23-300) Chemistry Test 04/04/17 21:00 White Blood Count 13.6 k/uL (4.5-11.0) Red Blood Count 5.42 M/uL (4.17-5.56) Hemoglobin 12.6 g/dL (12.0-16.0) Hematocrit 39.0 % (34.0-47.0) Mean Corpuscular Volume 72.0 fL (80.0-96.0) Mean Corpuscular Hemoglobin 23.2 pg (26.0-33.0) Mean Corpuscular Hemoglobin Concent 32.2 g/dL (32.0-36.0) Red Cell Distribution Width 18.5 % (11.5-14.5) Platelet Count 265 K/uL (150-450) Mean Platelet Volume 9.1 fL (7.2-11.1) Neutrophils (%) (Auto) 57.5 % (39.4-72.5) Lymphocytes (%) (Auto) 34.3 % (17.6-49.6) Monocytes (%) (Auto) 5.7 % (4.1-12.4) Eosinophils (%) (Auto) 2.1 % (0.4-6.7) Basophils (%) (Auto) 0.4 % (0.3-1.4) Nucleated RBC Relative Count (auto) 0.1 /100WBC Neutrophils # (Auto) 7.8 K/uL (2.0-7.4) Lymphocytes # (Auto) 4.7 K/uL (1.3-3.6) Monocytes # (Auto) 0.8 K/uL (0.3-1.0) Eosinophils # (Auto) 0.3 K/uL (0.0-0.5) Basophils # (Auto) 0.1 K/uL (0.0-0.1) Nucleated RBC Absolute Count (auto) 0.01 K/uL Peripheral Blood Smear Y/N Urine Color Yellow Urine Clarity Clear Urine pH 6.0 pH (4.8-9.5) Urine Specific [place] 1.015 Urine Protein Negative mg/dL (NEGATIVE) Urine Glucose (UA) Negative mg/dL (NEGATIVE) Urine Ketones Negative mg/dL (NEGATIVE) Urine Blood Negative (NEGATIVE) Urine Nitrite Negative (NEGATIVE) Urine Bilirubin Negative (NEGATIVE) Urine Urobilinogen Negative mg/dL (0.2-1.9) Urine Leukocyte Esterase Small (NEGATIVE) Urine RBC <1 /HPF (0-2/HPF) Urine WBC 2 /HPF (0-5/HPF) Urine Squamous Epithelial Cells Many /LPF (</=FEW) Urine Bacteria Few /HPF (NONE-FEW) Urine Mucus None /HPF (NONE-FEW) Urine HCG, Qualitative Negative (NEGATIVE) Glomerular Filtration Rate Calc > 60.0 Lactate 1.7 mmol/L (0.7-2.1) Calcium Level 9.4 mg/dl (8.4-10.2) Total Bilirubin 0.3 mg/dl (0.2-1.3) Aspartate Amino Transf (AST/SGOT) 23 U/L (0-35) Alanine Aminotransferase (ALT/SGPT) 52 U/L (0-56) Alkaline Phosphatase 106 U/L (0-126) Total Protein 7.3 gm/dl (6.3-8.2) Albumin 3.8 g/dl (3.5-5.0) Amylase Level 87 U/L (0-110) Lipase 183 U/L (23-300) Urinalysis Test 04/04/17 21:00 Urine Color Yellow Urine Clarity Clear Urine pH 6.0 pH (4.8-9.5) Urine Specific [place] 1.015 Urine Protein Negative mg/dL (NEGATIVE) Urine Glucose (UA) Negative mg/dL (NEGATIVE) Urine Ketones Negative mg/dL (NEGATIVE) Urine Blood Negative (NEGATIVE) Urine Nitrite Negative (NEGATIVE) Urine Bilirubin Negative (NEGATIVE) Urine Urobilinogen Negative mg/dL (0.2-1.9) Urine Leukocyte Esterase Small (NEGATIVE) Urine RBC <1 /HPF (0-2/HPF) Urine WBC 2 /HPF (0-5/HPF) Urine Squamous Epithelial Cells Many /LPF (</=FEW) Urine Bacteria Few /HPF (NONE-FEW) Urine Mucus None /HPF (NONE-FEW) Urine HCG, Qualitative Negative (NEGATIVE) (CRISPIN LEDEZMA MD) ED Course/Re-evaluation Clinical Indication for ER IV: Hydration ED Course Patient with known gallbladder disease with CAT scan from March 31 showing multiple stones repeated lab work and ultrasound of the gallbladder tonight white blood cell count is elevated at 13.8 liver function tests are within normal range lactate is 1.7 Decision to Disposition Date: Apr 04, 2017 Decision to Disposition Time: 23:51 (SURENDRA GREEN) Clinical Indication for ER IV: IV Access ED Course I assumed care of this patient at the end of my nurse practitioner's shift. The patient is a 36 year old female. She has gallstones and was going to be seeing Dr. Arellano on Saturday, however, had worsening symptoms so came to the ER tonight. She had an ultrasound that was positive for stones and mild wall thickening of 3.7mm, but no fluid or problems with the bile ducts. The patient would like to have her gallbladder removed if possible. I called Dr. Arellano and we will admit the patient to the medical floor. Start Ertapenem 1g IV x1 now. She can have clear liquids tonight until the morning at about 0700, then NPO. FLATCAR WHACKER with Morphine and Zofran for nausea. IV fluids tonight. Dr. Arellano will see her in the morning and she will likely have surgery tomorrow afternoon. Decision to Disposition Date: Apr 04, 2017 Decision to Disposition Time: 23:04 (CRISPIN LEDEZMA MD) Depart Departure Latest Vital Signs Vital Signs Date Time Temp Pulse Resp B/P (MAP) Pulse Ox O2 Delivery O2 Flow Rate FiO2 04/05/17 00:00 108/75 (86) 04/04/17 23:51 60 94 04/04/17 19:44 98.1 19 Room Air (CRISPIN LEDEZMA MD) Impression: Primary Impression: Gallstones Additional Impression: Cholecystitis Condition: Condition Unchanged Disposition: Admitted from ER Problem Qualifiers SURENDRA GREEN Apr 04, 2017 20:47 CRISPIN LEDEZMA MD Apr 04, 2017 23:34
[2017-04-04 21:17] LABS: PLATELET COUNT, AUTOMATED 265 K/uL (150-450)
[2017-04-04] MEDS ORDERED: MORPHINE 4 MG/ML SYR IVP ONE (23:05)
--- NOTE | 2017-04-04 23:28 | RADIOLOGY IMAGING REPORT ---
FACILITY: [facility] [place] PATIENT NAME: Violet Lamebrt : 1980 MR: [id number] V: [id number] EXAM DATE: ORDERING PHYSICIAN: SURENDRA GREEN TECHNOLOGIST: Location: [facility] [place] Patient: Violet Lambert : 1980 Visit/Account:[id number] Date of Sevice: 04/04/2017 GALLBLADDER HISTORY: Right upper quadrant pain for one week. COMPARISON: CT abdomen and pelvis 03/31/2017. FINDINGS: Pancreas: The visible pancreas is normal. The distal body and tail of the pancreas are obscured by marcelina wel gas. Upper abdominal aorta and IVC: Aorta and IVC are patent by color Doppler and are unremarkable. The mi d aorta is 1.8 cm in cross-section. Liver: The liver is diffusely echogenic and difficult to penetrate, compatible with hepatic steatosis . The portal vein is patent with normal hepatopetal flow. Hepatic veins are patent. Gallbladder: There are mobile stones within the gallbladder. Gallbladder wall thickness is 3 mm, whic h is at the upper limits of normal. No pericholecystic fluid. Positive sonographic Hall sign. Common duct: Normal measuring 6 mm. Right kidney: Normal in size and echogenicity. It measures 10.9 x 4.1 x 5.2 cm. No hydronephrosis. Re sistive index is normal at 0.7. Ascites: None. IMPRESSION: 1. Cholelithiasis, borderline gallbladder wall thickening, and positive sonographic Hall sign. In t he appropriate clinical setting, findings may be due to cholecystitis. 2. Hepatic steatosis. It can progress to steatohepatitis and eventual cirrhosis. 3. The distal body and tail of the pancreas are obscured. Report Dictated By: Patricia Alfonso at 04/04/2017 11:18 PM Report E-Signed By: Patricia Alfonso at 04/04/2017 11:24 PM WSN:[id number]
[2017-04-04] MEDS ORDERED: ERTAPENEM 1 GM VIAL ONE (23:37)
[2017-04-04] MEDS ORDERED: NS(*) 0.9% 100 ML BAG 100 ML ONE (23:37)
[2017-04-04] MEDS ORDERED: ERTAPENEM(*) 1 GM VIAL 1 GM in NS(*) 0.9% 100 ML ADDVANT BAG 100 ML IVPB ONE (23:50)
[2017-04-05] VITALS (15 sets, daily range): BP systolic 107–137; BP diastolic 52–118; Ht 160 cm; Wt 90.5 kg
[2017-04-05] MEDS ORDERED: METF-420 PO (00:03)
[2017-04-05] MEDS ORDERED: LEVO100V IVP (00:03)
[2017-04-05] MEDS ORDERED: LEVO-3 PO (01:42)
[2017-04-05] MEDS ORDERED: DULA0.75 (01:42)
[2017-04-05] MEDS ORDERED: OXYC-375 PO (01:47)
[2017-04-05] MEDS ORDERED: NS(*) 0.9% 1000 ML BAG 1,000 ML IV PRN ×3 (01:55→15:35)
[2017-04-05] MEDS ORDERED: MORPHINE 1 MG/ML 30 ML PCA IV PRN (02:10)
[2017-04-05] MEDS ORDERED: ONDANSETRON 4 MG/2 ML VIAL ONE ×2 (02:25→13:54)
[2017-04-05] MEDS ORDERED: MORPHINE 1 MG/ML 30 ML PCA ONE (02:25)
[2017-04-05] MEDS: ONDANSETRON 4 MG/2 ML VIAL IVP PRN ×3 (02:30→10:56)
[2017-04-05] MEDS ORDERED: NORMOSOL R SOLN(*) 1000 ML BAG 1,000 ML IV ONE (03:10)
[2017-04-05] MEDS ORDERED: FLUSH 10 ML SYR IVP PRN (08:00)
--- NOTE | 2017-04-05 08:08 | Gen Surgery History & Physical ---
History of Present Illness Chief Complaint Abdominal pain History of Present Illness 36yo female presents with intermittent RUQ abdominal pain for several years but worse in the last couple of months. She was seen in the ER 4 days ago with RUQ abdominal pain but she refused admission at that time and her pain resolved but started again yesterday morning. She came back into the ER where her WBC was elevated and RUQ U/S c/w calculous cholecystitis. She was recommended for admission. History Problems: (1) PCOS (polycystic ovarian syndrome) Status: Chronic (2) Hypothyroidism Status: Chronic (3) Borderline diabetes Status: Chronic Home Meds Reported Medications Oxycodone Hcl/Acetaminophen (OXYCODONE-ACETAMINOPHEN 10-325) 1 Each Tablet, 1 EACH PO Q4H 04/05/17 Dulaglutide (Trulicity) 0.75 Mg/0.5 Ml Pen.injctr, QWEEK 04/05/17 Levothyroxine Sodium (LEVOTHYROXINE SODIUM) 100 Mcg Tablet, 112 MCG PO QDAY, TAB 04/05/17 Metformin Hcl (METFORMIN HCL) 1,000 Mg Tablet, 1 TAB PO BID, TAB 04/05/17 Discontinued Reported Medications Levothyroxine Sodium (LEVOTHYROXINE SODIUM) 100 Mcg Vial, 100 MCG IVP, VIAL 04/05/17 Dulaglutide (Trulicity) 0.75 Mg/0.5 Ml Pen.injctr, WEEKLY 03/26/17 Metformin Hcl (METFORMIN HCL) 500 Mg Tablet, 2 TAB PO BID, TAB 08/07/16 Levothyroxine Sodium (LEVOTHYROXINE SODIUM) 50 Mcg Tablet, 100 MCG PO QDAY, TAB 08/07/16 Discontinued Scripts Ondansetron Hcl (ZOFRAN) 4 Mg Tablet, 4 MG PO Q6H Y for NAUSEA/VOMITING, #10 Prov:SYDNEY MAHMOOD DO 04/01/17 Oxycodone Hcl/Acetaminophen 10-325 Mg (ENDOCET 10-325 MG TABLET) 1 Each Tablet, 1 EACH PO Q4H Y for PAIN, #15 TAB Prov:SYDNEY MAHMOOD DO 04/01/17 Ondansetron Hcl (ZOFRAN) 4 Mg Tablet, 4 MG PO Q6H Y for NAUSEA/VOMITING, #12 Prov:SYDNEY MAHMOOD DO 03/26/17 Oxycodone Hcl/Acetaminophen (PERCOCET 5-325 MG TABLET) 1 Each Tablet, 1 EACH PO Q4-6H Y for PAIN, #15 Prov:SYDNEY MAHMOOD DO 03/26/17 Allergies: Coded Allergies: No Known Drug Allergies (Unverified , 04/05/17) Review of Systems All Systems Reviewed/Normal: Yes, Except as Noted Gastrointestinal: Nausea, Abdominal Pain Exam General Appearance: Alert, Awake, No Acute Distress, Afebrile Neuro: No Gross deficits Eyes: PERRLA GI: Other (Soft, diffuse TTP greatest in RUQ. No peritoneal signs.) Extremities: Warm, Perfused Medical Decision Making Data Points Result Diagram: 04/04/17209904/04/172099 Assessment and Plan Problems: (1) Cholecystitis Status: Acute Assessment & Plan: 04/05/17: Admit, NPO, IV fluids, IV abx, to OR later today for lap zayra. I have explained the plan and surgery to her in great detail along the the alternatives, risks, and expected recovery. She indicates her understanding of this discussion and her questions have been answered. She would like to proceed with this plan including surgery. Condition Stable. Time Spent: < 30 min Venous Thromboembolism VTE Risk Physician Assess for VTE Risk: Yes Patient's VTE Risk: Low VTE Diagnostic Test 2 Days Prior to Admit: No Antithrombotics Is Pt On Any Antithrombotics?: No GEORGIA SANTACRUZ MD Apr 05, 2017 08:08
[2017-04-05] MEDS ORDERED: PANTOPRAZOLE SOD 40 MG IV VIAL IVP SCH (09:00)
[2017-04-05] MEDS ORDERED: fentaNYL CITR 250 MCG/5 ML AMP ONE (12:00)
[2017-04-05] MEDS ORDERED: PROPOFOL EMUL(*) 10MG/ML 20 ML 20 ML ONE (12:01)
[2017-04-05] MEDS ORDERED: LIDOCAINE 2% IV 100 MG/5ML SYR ONE (12:03)
[2017-04-05] MEDS ORDERED: ERTAPENEM(*) 1 GM VIAL 1 GM in NS(*) 0.9% 100 ML BAG 100 ML IVPB ONE (13:00)
[2017-04-05] MEDS ORDERED: MIDAZOLAM 2 MG/2 ML VIAL IVP PRN (13:35)
[2017-04-05] MEDS ORDERED: DEXAMETHASONE SOD 4 MG/ML VIAL ONE (13:53)
[2017-04-05] MEDS ORDERED: KETOROLAC 30 MG/ML VIAL ONE (13:54)
[2017-04-05] MEDS ORDERED: SUGAMMADEX SOD 200 MG/2 ML SDV ONE (13:58)
[2017-04-05] MEDS ORDERED: fentaNYL CITR 100 MCG/2 ML AMP ONE ×2 (15:14→15:49)
--- NOTE | 2017-04-05 15:45 | RADIOLOGY IMAGING REPORT ---
FACILITY: [facility] PATIENT NAME: Violet Lambert : 1980 MR: [id number] V: [id number] EXAM DATE: ORDERING PHYSICIAN: GEORGIA SANTACRUZ TECHNOLOGIST: [facility] Patient: Violet Lambert : 1980 Visit/Account:[id number] Date of Sevice: 04/05/2017 Exam type: CHOLANGIOGRAM OPERATIVE History: CHOLECYSTITIS Comparison: CT scan 03/31/2017. Findings: Fluoroscopy was provided for the purposes of an intraoperative cholangiogram. Total fluoroscopy time was 14.4 seconds for a total DAP of 0.17426 mGy/m2. The provided images demonstrate injection of contrast into what appears to be the cystic duct. There appears to be retrograde filling of the gallbladder with a large filling defect which is likely a la rge gallstone. I do not visualize the common bile duct, biliary tree or duodenum. Please correlate with surgeon's noted. IMPRESSION: 1. Fluoroscopy was provided for the purposes of intraoperative cholangiogram. There appears to be retrograde filling of the gallbladder with a large filling defect likely a gallst one the gallbladder. The common bile duct is not visualized. Report Dictated By: Linus Pappas MD at 04/05/2017 3:26 PM Report E-Signed By: Linus Pappas MD at 04/05/2017 3:40 PM WSN:[id number]
--- NOTE | 2017-04-05 15:53 | Post Operative Progress Note ---
Post Operative Progress Note Date: Apr 05, 2017 Time: 15:45 Surgeon: Adan Dictation number: [id number] Anesthesia: GETA by Dr. Orantes Pre-Op Diagnosis: Acute Cholecystitis Post-Op Diagnosis: BRYSON Findings: C/W dx Procedure(s): Lap zayra Specimen Removed:(May be N/A): GB and contents Complications: None Fluids: See anesthesia record Estimated Blood Loss: Minimal Date OP Note Dictated: Apr 05, 2017 Time OP Note Dictated: 15:47 GEORGIA SANTACRUZ MD Apr 05, 2017 15:53
--- NOTE | 2017-04-05 19:42 | OPERATIVE REPORT 1 ---
EVENT DATE: April 05, 2017 SURGEON: Cedrick Arellano MD ANESTHESIOLOGIST: Ezio Orantes MD ANESTHESIA: General endotracheal anesthesia. PREOPERATIVE DIAGNOSIS Acute cholecystitis. POSTOPERATIVE DIAGNOSIS Acute cholecystitis. PROCEDURE PERFORMED Laparoscopic cholecystectomy. COMPLICATIONS None. CONDITION Stable. BLOOD LOSS Minimal. INDICATIONS This is a 36-year-old female who presented to the Emergency Department with repeated episodes of right upper quadrant abdominal pain. Her white blood cell count was 13,000, and a right upper quadrant ultrasound revealed gallbladder wall thickening with gallstones and pericholecystic fluid consistent with a cholecystitis. Her pain was fairly constant, and so she was admitted to the hospital for further pain management and treatment of her cholecystitis, which includes cholecystectomy. DESCRIPTION OF PROCEDURE The patient was brought to the operating room and placed supine on the operating table where general endotracheal anesthesia was administered, and her abdomen was prepped and draped in a sterile fashion. A timeout was completed. I injected her infraumbilical skin with 0.5% bupivacaine plain. I made a curvilinear smiley face type incision in the infraumbilical rim and dissected down through the dermis and subcutaneous fat. I identified the midline fascia and made a vertical incision in the midline fascia. I grasped the fascial edges with Emanuel clamps and then penetrated the peritoneal cavity with my finger while retracting the abdominal wall toward the ceiling. I then placed two interrupted 0 Vicryl sutures transversely through the vertical fascial defect and inserted a 12 mm Liudmila type port through this wound and secured it in place with sutures. I insufflated the abdomen to a pressure of 15 mmHg and inserted a 5 mm, 30-degree angled scope through this port. Next, under direct visualization, I placed a 5 mm port in the epigastric midline and two 5 mm ports in the right upper quadrant. The fundus of the gallbladder was grasped and retracted towards the patient's right shoulder, and the infundibulum was grasped and retracted towards the patient's right hip. I then divided the peritoneum overlying the infundibulum and both the medial and lateral aspects of the gallbladder. I then stripped peritoneum and subperitoneal contents down and continued dissecting until I identified the cystic duct and cystic artery. I cleaned off the cystic duct and artery circumferentially. I then clipped the artery proximally and distally and divided it between the clips. I then clipped the duct at the infundibular/cystic duct junction and made a ductotomy just distal to the clip. I then attempted a cholangiogram. I inserted a cholangiocatheter in the cyst duct and clamped it in place, but I could not get any contrast to flow at all through the cystic duct. I tried this several times with no success, so ultimately aborted the attempt at cholangiogram since this patient did not have a dilated common bile duct, and her LFTs were normal. I then clipped the duct three clips distal to the ductotomy and divided the duct between the clips. I then divided the posterior attachments of the gallbladder and it from the gallbladder fossa. I then placed the gallbladder in a surgical specimen retrieval bag and removed it from the abdomen through the umbilical port site. I then irrigated and dried the right upper quadrant, and there were a couple areas of oozing in the gallbladder fossa which were easily controlled with electrocautery. I then inspected for bleeding and bile leaks from both the gallbladder fossa as well as the cystic duct and artery stumps, and there was none. I then coated the entire gallbladder fossa and down where the cystic duct and artery stumps are with Alice hemostatic powder. At the end of this case, everything looked dry and all the irrigation fluid removed. I then removed the 5 mm ports, inspected the peritoneal surfaces for bleeding, and there was none. I removed the camera, desufflated the abdomen, and removed the umbilical port. The remainder of the umbilical fascia was closed with running 0 Vicryl suture, and I tied all of these down with good reapproximation of the fascia edges and no intervening fascial defect. I then closed the skin at each port site with 4-0 Monocryl running subcuticular suture. The skin was cleaned and dried, and Steri-Strips were applied, followed by sterile surgical dressings. The patient was awakened and extubated in the operating room and transported to the recovery room in stable condition having tolerated the procedure without any problems. JORY
[2017-04-05] MEDS: DOCUSATE SODIUM 100 MG CAP PO SCH (21:07)
[2017-04-06 02:13] VITALS: BP 109/70
[2017-04-06 07:06] VITALS: BP 106/65
[2017-04-06] MEDS: DOCUSATE SODIUM 100 MG CAP PO SCH (07:56)
[2017-04-06] MEDS ORDERED: PANTOPRAZOLE SOD 40 MG TABEC PO SCH (09:00)
[2017-04-06] MEDS ORDERED: PER PO (10:42)
[2017-04-06] MEDS ORDERED: DOCU-202 PO (10:42)
--- NOTE | 2017-04-06 10:45 | Short(Outpt) Discharge Summary ---
Discharge Summary Reason for Hosp/Final Diag: (1) Cholecystitis Status: Acute Hospital Course & Plan: 04/05/17: Admit, NPO, IV fluids, IV abx, to OR later today for lap zayra. I have explained the plan and surgery to her in great detail along the the alternatives, risks, and expected recovery. She indicates her understanding of this discussion and her questions have been answered. She would like to proceed with this plan including surgery. 04/06/17: POD#1 s/p lap zayra. Doing well. Tolerating diet. Will d/c to home today. Departure Discharge to: Home, Self Care Discharge Instructions Home Meds Active Scripts Oxycodone/Acetaminophen (OXYCODONE/ACETAMINOPHEN 5MG/325 MG) 5 Mg/325 Mg Tab, 1- 2 TAB PO Q4H Y for PAIN, #30 TAB 0 Refills Prov:GEORGIA SANTACRUZ MD 04/06/17 Docusate Sodium (DOCUSATE SODIUM) 100 Mg Capsule, 1 CAP PO BID, #30 CAPSULE 0 Refills Prov:GEORGIA SANTACRUZ MD 04/06/17 Reported Medications Oxycodone Hcl/Acetaminophen (OXYCODONE-ACETAMINOPHEN 10-325) 1 Each Tablet, 1 EACH PO Q4H 04/05/17 Dulaglutide (Trulicity) 0.75 Mg/0.5 Ml Pen.injctr, QWEEK 04/05/17 Levothyroxine Sodium (LEVOTHYROXINE SODIUM) 100 Mcg Tablet, 112 MCG PO QDAY, TAB 04/05/17 Metformin Hcl (METFORMIN HCL) 1,000 Mg Tablet, 1 TAB PO BID, TAB 04/05/17 Discontinued Reported Medications Levothyroxine Sodium (LEVOTHYROXINE SODIUM) 100 Mcg Vial, 100 MCG IVP, VIAL 04/05/17 Dulaglutide (Trulicity) 0.75 Mg/0.5 Ml Pen.injctr, WEEKLY 03/26/17 Metformin Hcl (METFORMIN HCL) 500 Mg Tablet, 2 TAB PO BID, TAB 08/07/16 Levothyroxine Sodium (LEVOTHYROXINE SODIUM) 50 Mcg Tablet, 100 MCG PO QDAY, TAB 08/07/16 Discontinued Scripts Ondansetron Hcl (ZOFRAN) 4 Mg Tablet, 4 MG PO Q6H Y for NAUSEA/VOMITING, #10 Prov:SYDNEY MAHMOOD DO 04/01/17 Oxycodone Hcl/Acetaminophen 10-325 Mg (ENDOCET 10-325 MG TABLET) 1 Each Tablet, 1 EACH PO Q4H Y for PAIN, #15 TAB Prov:SYDNEY MAHMOOD DO 04/01/17 Ondansetron Hcl (ZOFRAN) 4 Mg Tablet, 4 MG PO Q6H Y for NAUSEA/VOMITING, #12 Prov:SYDNEY MAHMOOD DO 03/26/17 Oxycodone Hcl/Acetaminophen (PERCOCET 5-325 MG TABLET) 1 Each Tablet, 1 EACH PO Q4-6H Y for PAIN, #15 Prov:SYDNEY MAHMOOD DO 03/26/17 Follow up Referrals: General Surgery - 04/23/17 @ Surgery, General with Georgia Santacruz Md You have a follow up appointment scheduled with Dr. Santacruz on 04/23/17, at 9:15am. Diet: Regular Activity: As Tolerated Special Instructions: You can remove the white surgical dressings on 04/07/17, then you can shower. After showering, leave the incisions open to air but leave the steristrips in place until they fall off on their own. Do not immerse the incisions for 2 weeks. GEORGIA SANTACRUZ MD Apr 06, 2017 10:45
[2017-04-06 11:18] VITALS: BP 112/56
== END 2017-04-06 10:40 | disposition home or self-care (01) ==
LOC: ER 20:11 → MED 04-05 → INTOOBSV 04-05
PROVIDERS: ADMIT Surgery; ATTEND Surgery
DX: K80.00 Calculus of gallbladder with acute cholecystitis without obstruction (principal)
CPT/HCPCS: 47563; 74300; 76705; 81001; 81025; 82150; 83605; 83690; 85025; 96361; 96365; 96375; 99285; C9113; G0378; J1100; J1335; J2001; J2250; J2270; J2405; J2704; J3010; J7030; J7050; 82040; 82247; 82310; 82374; 82435; 82565; 82947; 84075; 84132; 84155; 84295; 84450; 84460; 84520; 88304; J1885

== ENCOUNTER → 2017-10-21 | Outpatient (REF) | payer OTHER ==
[2017-04-05 08:21] VITALS: BMI 35.2
[~2017-10-21] MED LIST changes: +DOCU-202 PO; +LEVO-3 PO; +LEVO100V IVP; -METF-410 PO; +METF-411 PO; +METF-421 PO; +OXYC1TAB78 PO; +PER PO; +PHEN15CA69 PO
== END ==
LOC: ZZSENDIN 10:31
PROVIDERS: ATTEND Obstetrics & Gynecology
DX: Z03.71 Encounter for suspected problem with amniotic cavity and membrane ruled out (principal)
CPT/HCPCS: 84112

== ENCOUNTER 2017-11-21 13:28 | Outpatient (RCR) | payer OTHER ==
[2017-04-05 08:21] VITALS: Ht 160 cm; Wt 102.5 kg
[~2017-11-21] VITALS: Ht 160 cm; Wt 102.5 kg
[~2017-11-21 13:28] MED LIST changes: -METF-411 PO; -METF-421 PO; +METF-450 PO; +METF-452 PO
--- NOTE | 2017-11-21 15:38 | Medical Nutrition Therapy ---
Nutrition Anthropometrics Height (Inches): 63 Weight (Pounds): 226 Shailesh Nutrition Score: Shailesh Nutrition Risk Score: Dietary Referral Nutrition Risk Factors: Nutrition Risk Comment: Nutrition/Food History Breakfast: Cookie crisp w/ skim or breakfast sandwich w/ potatoes Lunch: Burritos or leftovers Dinner: Fast food- hamburger and fries, [employer] Snacks: Donuts, cupcakes, veggies, chips, or cheese Nutritional Education Nutrition Education Topic: Diabetic Nutrition Learning Readiness: Eager Teaching Methods: Discussion, Handout, Demonstration Response to Teaching: Verbalize understanding Teaching Recipient: Patient, Significant Other Nutrition Counseling: Met with pt, gave education on What is gestational diabetes, effect on baby, potential for T2 post delivery. Provided nutrtion education including glycemic repsonse/index. Set up a meal plan recommending 30g CHO at breakfast, 15-30g CHO for morning, afternoon and night snacks, and 30-45g CHO for lunch and dinner. Pt is craving juice, recommended crystal light. Pt was consuming very glycemic index foods such as donuts, cupcakes, cereal, and fast food items, recommended other healthier options. Taught pt how to use a glucometer,acceptable BG ranges, and track her BG levels. Nutrition Monitoring & Eval RD Patient Assessment Time: [address] Assessment Type: RD Education Follow Up Date: Dec 05, 2017 Nutritional Comment: 10/21. Provided 1 hr gestational diabetes education with focus on what is gest DM, nutrtion, glucometer testing and acceptable BG range. Copies To Copies to: SEN URBINA MD ; RAY BARNES Nov 21, 2017 15:12
--- NOTE | 2017-12-05 17:05 | Medical Nutrition Therapy ---
Nutritional Education Nutrition Education Topic: Diabetic Nutrition (Gestational) Learning Readiness: Eager, Interested Teaching Methods: Discussion, Handout Response to Teaching: Return demonstration, Verbalize understanding Teaching Recipient: Patient, Significant Other Nutrition Counselin/20 Met with pt and significant other for follow up with DM. Pt has been tracking BG and has been recording values between 175-260's. She said she recently started a new med to manage BG, which has kept levels between 88-122. She struggles to maintain the low carb levels that we prescribed in her last visit (15-30g CHO snacks and breakfast and 30-45g CHO for lunch/dinner). We talked about setting herself up for success by shopping, prepping meals in advance, and avoiding high CHO choices when she eats out. They eat out often. We talked about how many carbs are in certain foods and they asked great questions indicating they understand. I feel they need follow up and support from a dietary perspective because this seemed overwhelming to them. 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 Nutrition Monitoring & Eval RD Patient Assessment Time: [address] Assessment Type: RD Education Follow Up Date: Dec 05, 2017 Nutritional Comment: 10/21. Provided 1 hr gestational diabetes education with focus on what is gest DM, nutrtion, glucometer testing and acceptable BG range. 12/05 Provided 45 min GDM education and focused on appropriate foods and how to prepare for the week. -EK Copies To Copies to: SEN URBINA MD ; KINGSLEY FLORES Dec 05, 2017 17:05
[2017-12-17] MEDS ORDERED: GLY5 PO (12:30)
[2017-12-17] MEDS ORDERED: PREN-127 PO (12:30)
== END 2017-12-26 ==
LOC: DIET 13:28
PROVIDERS: ATTEND Obstetrics & Gynecology
DX: O24.419 Gestational diabetes mellitus in pregnancy, unspecified control (principal)
CPT/HCPCS: G0108 ×4

== ENCOUNTER 2017-12-12 17:04 | Outpatient (CLI) | payer OTHER ==
[2017-04-05 08:21] VITALS: BMI 35.2
== END 2017-12-12 18:50 | disposition home or self-care (01) ==
LOC: L&D 17:04 → OB 17:04 → INTOOBSV 17:04 → OB 17:04 → UNDOADMOB 17:04 → L&D 18:50 → UNDODISOB 18:50 → EDSTATUS 12-13 16:00
PROVIDERS: ATTEND Obstetrics & Gynecology
DX: O36.8131 Decreased fetal movements, third trimester, fetus 1 (principal); Z3A.33 33 weeks gestation of pregnancy
CPT/HCPCS: 99213

== ENCOUNTER → 2017-12-12 | Outpatient (CLI) | payer OTHER ==
[2017-04-05 08:21] VITALS: BMI 35.2
--- NOTE | 2017-12-12 14:08 | RADIOLOGY IMAGING REPORT ---
[facility] PATIENT NAME: Violet Lambert : 1980 MR: [id number] V: [id number] EXAM DATE: ORDERING PHYSICIAN: SEN URBINA TECHNOLOGIST: Location: [facility] Patient: Violet Lambert : 1980 Visit/Account:[id number] Date of Sevice: 12/12/2017 Exam type: BIOPHYSICAL W/O NST History: Decreased movements Comparison: None. Findings: Single fetus in cephalic presentation Biophysical profile score was eight out of eight. The amniotic fluid index measured 22.62. heart rate 160 bpm IMPRESSION: 1. Single viable fetus in cephalic presentation. Biophysical profile score 8 out of eight A message was left for SEN URBINA at 12/12/2017 2:05 PM. Report Dictated By: Sharri Dorsey MD at 12/12/2017 2:00 PM Report E-Signed By: Sharri Dorsey MD at 12/12/2017 2:05 PM WSN:[email or web address]
== END ==
LOC: US 12:34
PROVIDERS: ATTEND Obstetrics & Gynecology
DX: O36.8130 Decreased fetal movements, third trimester, not applicable or unspecified (principal); Z3A.33 33 weeks gestation of pregnancy
CPT/HCPCS: 76819

== ENCOUNTER 2017-12-17 11:48 | Observation (INO) | payer OTHER ==
[~2017-12-17] VITALS: Ht 161.3 cm; Wt 105.9 kg
[2017-12-17] MEDS ORDERED: FLUSH 10 ML SYR IVP PRN (11:55)
[2017-12-17 12:18] LABS: PLATELET COUNT, AUTOMATED 187 K/uL (150-450)
[2017-12-17] MEDS ORDERED: PREN-127 PO (12:30)
[2017-12-17] MEDS ORDERED: GLY5 PO (12:30)
[2017-12-17 12:32] VITALS: BP 145/92; Ht 161.3 cm; Wt 105.9 kg
--- NOTE | 2017-12-17 13:29 | RADIOLOGY IMAGING REPORT ---
FACILITY: [facility] [place] PATIENT NAME: Violet Lambert : 1980 MR: [id number] V: [id number] EXAM DATE: ORDERING PHYSICIAN: SEN URBINA TECHNOLOGIST: Location: [facility] [place] Patient: Violet Lambert : 1980 Visit/Account:[id number] Date of Sevice: 12/17/2017 EXAMINATION: Bilateral LOWER EXTREMITY VENOUS DOPPLER ULTRASOUND DATE: 12/17/2017 1:22 PM CLINICAL INFORMATION: Evaluate for DVT REASON FOR STUDY: Heat, redness, and Pain to lower extremities TECHNIQUE: Grayscale, color Doppler, and spectral Doppler ultrasound was performed of the lower extre mity veins to evaluate for deep venous thrombosis. COMPARISON: None relevant FINDINGS: The bilateral common femoral, femoral, and popliteal veins are compressible with normal flow on color Doppler imaging. There is also normal Doppler flow of the profunda femoris and greater saphenous vei ns at the confluence with the common femoral vein. The bilateral posterior tibial and peroneal veins demonstrate normal flow IMPRESSION: No evidence of deep venous thrombosis in the bilateral lower extremity veins. Report Dictated By: Rock Jenkins MD at 12/17/2017 1:22 PM Report E-Signed By: Rock Jenkins MD at 12/17/2017 1:25 PM WSN:[email or web address]
[2017-12-17] MEDS ORDERED: NS(*) 0.9% 50 ML BAG 50 ML ONE (13:33)
[2017-12-17] MEDS ORDERED: IOPAMIDOL 76% 75 ML INFUS BTL 75 ML ONE (13:34)
--- NOTE | 2017-12-17 14:50 | RADIOLOGY IMAGING REPORT ---
FACILITY: [facility] [place] PATIENT NAME: Violet Lambert : 1980 MR: [id number] V: [id number] EXAM DATE: ORDERING PHYSICIAN: SEN URBINA TECHNOLOGIST: Location: [facility] [place] Patient: Violet Lambert : 1980 Visit/Account:[id number] Date of Sevice: 12/17/2017 CT angiogram chest with contrast Indication: Shortness breath and chest pain. Comparison: None available. Technique: Axial CT images are obtained through the chest after administration of 75 mL Isovue 370 IV contrast. Reformatted coronal and sagittal images were reviewed as well as coronal MIP images. One of the following dose optimization techniques was utilized in the performance of this exam: auto mated exposure control; adjustment of the mA and/or kV according to the patient's size; or use of an iterative reconstruction technique. Specific details can be referenced in the facility's radiology C T exam operational policy. FINDINGS: No evidence of filling defect within the pulmonary vasculature to suggest pulmonary embolus. Heart is normal size without pericardial effusion. The aorta shows no aneurysm or dissection. The med iastinum and hilar regions show no enlarged lymph nodes or abnormal density. Lungs show dependent atelectasis. No consolidations, pleural effusion, pneumothorax, discrete nodule or focal interstitial opacities. Airways are clear. For structures show no acute fractures or aggressive bony lesions. Chest wall shows no enlarged axill ruthy lymph nodes or masses. Limited views of the upper abdomen are unremarkable. IMPRESSION: 1. No evidence of pulmonary embolus. 2. No acute cardiothoracic abnormality Report Dictated By: Linus Moy at 12/17/2017 2:40 PM Report E-Signed By: Linus Moy at 12/17/2017 2:46 PM WSN:[id number]
[2017-12-17] MEDS: INSULIN HUM LISPRO 100 UN/ML 3 ML VIAL SUBQ SCH ×2 (15:37→18:33)
[2017-12-17] MEDS ORDERED: INSULIN HUM ISO(NPH) 100 UN/ML 3 ML VIAL SUBQ SCH (17:00)
--- NOTE | 2017-12-17 21:10 | History & Physical ---
History of Present Illness Age of Patient: 37 : 1 Para or TPAL: 0 Estimated Gestational Age: 33.6 Chief Complaint Blood pressure problems, gestational diabetes, possible blood clot History of Present Illness Presented to office today for evaluation for her gestational diabetes and other problems. She has significant swelling in her lower extremities and right greater than left, painful and apparent Vitaliy's sign. She also feels short of breath and coughing. Her blood sugars have been poorly controlled with diet and recently with Glyburide 5 mg BID. Her blood pressure in office was mildly elevated at 140/90 but denies severe features. Labs here were normal other than protein/creatinine ratio of 1.5 (was 4+ on dip in office). Initial testing revealed negative for clots in legs or lungs after a CTA and dopplers. BPs here have been mild range since admission. History Allergies: Coded Allergies: No Known Drug Allergies (Unverified , 04/05/17) Family History: FH: anemia BROTHER OR SISTER FH: arthritis MOTHER FH: asthma BROTHER OR SISTER FH: glaucoma MOTHER FH: tremor MOTHER Hepatitis C FATHER, , Age:50's - 60 Med Rec Home Meds Reported Medications Vits W-Ca,Fe,Fa(<1MG) ( VITAMINS) 1 Each Tablet, 1 EACH PO DAILY, TAB 12/17/17 Glyburide (GLYBURIDE) 5 Mg Tab, 5 MG PO BID, TAB 12/17/17 Levothyroxine Sodium (LEVOTHYROXINE SODIUM) 100 Mcg Tablet, 112 MCG PO QDAY, TAB 04/05/17 Review of Systems Cardiovascular: No Chest Pain Respiratory: Shortness of Breath, Cough Gastrointestinal: No Abdominal Pain Musculoskeletal: Pain, Other (swelling) Other as per HPI Exam General Exam Vital Signs Vital Signs Date Time Temp Pulse Resp B/P (MAP) Pulse Ox O2 Delivery O2 Flow Rate FiO2 12/17/17 12:32 98.0 97 20 145/92 (109) General Apperance: Alert/Awake/No Acute Distress Neuro: No Gross deficits Eyes: Normal Extraocular Movement & Vison Cardiovascular: Regular Rate and Rhythm Respiratory: No Respiratory Distress, Clear to Auscultation Abdomen: Soft, Non-Tender, Non-Distended, Gravid - Non-Tender, RUQ Non-Tender Extremities: Warm, Edema (2+) Integumentary: Skin Intact without Lesions or Rash Psychological: Alert & Oriented X3, Appropriate Mood & Affect Fetus Heart Tone Variabilty: Moderate FHT Accelerations: 15X15 FHT Category: I Medical Decision Making Data Points Result Diagram: 12/17/17120812/17/171208 Imaging Ultrasound/Imaging FACILITY: [facility] PATIENT NAME: Violet Lambert : 1980 MR: [id number] V: [id number] EXAM DATE: ORDERING PHYSICIAN: SEN URBINA TECHNOLOGIST: Location: [facility] Patient: Violet Lambert : 1980 Visit/Account:[id number] Date of Sevice: 12/17/2017 EXAMINATION: Bilateral LOWER EXTREMITY VENOUS DOPPLER ULTRASOUND DATE: 12/17/2017 1:22 PM CLINICAL INFORMATION: Evaluate for DVT REASON FOR STUDY: Heat, redness, and Pain to lower extremities TECHNIQUE: Grayscale, color Doppler, and spectral Doppler ultrasound was performed of the lower extremity veins to evaluate for deep venous thrombosis. COMPARISON: None relevant FINDINGS: The bilateral common femoral, femoral, and popliteal veins are compressible with normal flow on color Doppler imaging. There is also normal Doppler flow of the profunda femoris and greater saphenous veins at the confluence with the common femoral vein. The bilateral posterior tibial and peroneal veins demonstrate normal flow IMPRESSION: No evidence of deep venous thrombosis in the bilateral lower extremity veins. Report Dictated By: Rock Jenkins MD at 12/17/2017 1:22 PM Report E-Signed By: Rock Jenkins MD at 12/17/2017 1:25 PM WSN:[email or web address] FACILITY: [facility] PATIENT NAME: Violet Lambert : 1980 MR: [id number] V: [id number] EXAM DATE: ORDERING PHYSICIAN: SEN URBINA TECHNOLOGIST: Location: [facility] Patient: Violet Lambert : 1980 Visit/Account:[id number] Date of Sevice: 12/17/2017 CT angiogram chest with contrast Indication: Shortness breath and chest pain. Comparison: None available. Technique: Axial CT images are obtained through the chest after administration of 75 mL Isovue 370 IV contrast. Reformatted coronal and sagittal images were reviewed as well as coronal MIP images. One of the following dose optimization techniques was utilized in the performance of this exam: automated exposure control; adjustment of the mA and/or kV according to the patient's size; or use of an iterative reconstruction technique. Specific details can be referenced in the facility's radiology CT exam operational policy. FINDINGS: No evidence of filling defect within the pulmonary vasculature to suggest pulmonary embolus. Heart is normal size without pericardial effusion. The aorta shows no aneurysm or dissection. The mediastinum and hilar regions show no enlarged lymph nodes or abnormal density. Lungs show dependent atelectasis. No consolidations, pleural effusion, pneumo thorax, discrete nodule or focal interstitial opacities. Airways are clear. For structures show no acute fractures or aggressive bony lesions. Chest wall shows no enlarged axillary lymph nodes or masses. Limited views of the upper abdomen are unremarkable. IMPRESSION: 1. No evidence of pulmonary embolus. 2. No acute cardiothoracic abnormality Report Dictated By: Linus Moy at 12/17/2017 2:40 PM Report E-Signed By: Linus Moy at 12/17/2017 2:46 PM WSN:[id number] Prophylasis: Adult Deep Vein Thrombosis/Pulmonary: No Pharmacological Contraindicati: Pt at Low Risk for VTE Assessment and Plan Problems: (1) 33 weeks gestation of (2) Pre-eclampsia, mild to moderate, third trimester Assessment & Plan: Labs reassuring and no severe features. Worrisome this will worsen and demand delivery before 37 weeks. Question of needing steroids but this will severely compromise her blood sugar control which we are trying to stabilize. Discussion with Dr. Azael Harris at [facility] who reviewed her condition with me and options. This was discussed with the pt and family. Options included move her care to [facility] and work on steroids and BS control for several days until at a gestational age at which she could return. Alternatively, we could do this here with the risk of needing transport if her BP worsens. They discussed and desire to move care to [place] for now. Will discharge her with beginning of steroids and she will transport herself by private vehicle to [facility] in [place]. She is stable medically here to do so. (3) Gestational diabetes mellitus, class A2 (4) Dependent edema (5) Cough SEN URBINA MD Dec 17, 2017 21:09
[2017-12-17] MEDS ORDERED: BETAMETHASONE/ACETATE 6 MG/1ML ONE (21:13)
--- NOTE | 2017-12-17 21:13 | Short(Outpt) Discharge Summary ---
Discharge Summary Reason for Hosp/Final Diag: (1) 33 weeks gestation of (2) Pre-eclampsia, mild to moderate, third trimester Hospital Course & Plan: Labs reassuring and no severe features. Worrisome this will worsen and demand delivery before 37 weeks. Question of needing steroids but this will severely compromise her blood sugar control which we are trying to stabilize. Discussion with Dr. Azael Harris at [facility] who reviewed her condition with me and options. This was discussed with the pt and family. Options included move her care to [facility] and work on steroids and BS control for several days until at a gestational age at which she could return. Alternatively, we could do this here with the risk of needing transport if her BP worsens. They discussed and desire to move care to [place] for now. Will discharge her with beginning of steroids and she will transport herself by private vehicle to [facility] in [place]. She is stable medically here to do so. (3) Gestational diabetes mellitus, class A2 (4) Dependent edema (5) Cough Departure Discharge to: Home, Self Care Discharge Instructions Home Meds Reported Medications Vits W-Ca,Fe,Fa(<1MG) ( VITAMINS) 1 Each Tablet, 1 EACH PO DAILY, TAB 12/17/17 Glyburide (GLYBURIDE) 5 Mg Tab, 5 MG PO BID, TAB 12/17/17 Levothyroxine Sodium (LEVOTHYROXINE SODIUM) 100 Mcg Tablet, 112 MCG PO QDAY, TAB 04/05/17 Follow up Referrals: [facility] - In Two Weeks @ [facility] with SEN URBINA MD Diet: Diabetic Activity: As Tolerated Copies to: SEN URBINA MD ; SEN URBINA MD Dec 17, 2017 21:13
== END 2017-12-17 21:35 | disposition short-term general hospital (02) ==
LOC: OB 11:48 → INTOOBSV 11:48 → UNDOADMOB 11:48 → UNDODISOB 21:35
PROVIDERS: ADMIT Obstetrics & Gynecology; ATTEND Obstetrics & Gynecology
DX: O24.419 Gestational diabetes mellitus in pregnancy, unspecified control (principal); O14.03 Mild to moderate pre-eclampsia, third trimester; R60.9 Edema, unspecified; R05 Cough; Z3A.33 33 weeks gestation of pregnancy
CPT/HCPCS: 36416; 59025; 71275; 82570; 82948; 83615; 84156; 84550; 85025; 93970; 96372; G0378; G0379; J0702; J1815; J7050; Q9967; 82040; 82247; 82310; 82374; 82435; 82565; 82947; 84075; 84132; 84155; 84295; 84450; 84460; 84520

== ENCOUNTER → 2018-03-19 | Outpatient (REF) | payer OTHER ==
[2017-12-17 12:32] VITALS: BMI 40.6
[~2018-03-19] MED LIST changes: +GLY5 PO; +PREN-127 PO
== END ==
LOC: ZZSENDIN 16:48
PROVIDERS: ATTEND Physician Assistant
DX: E11.9 Type 2 diabetes mellitus without complications (principal)
CPT/HCPCS: 82040; 82247; 82310; 82374; 82435; 82565; 82947; 84075; 84132; 84155; 84295; 84450; 84460; 84520

== ENCOUNTER 2018-07-24 08:11 | Emergency (ER) | payer OTHER ==
[2017-12-17 12:32] VITALS: BMI 40.6
[~2018-07-24 08:11] MED LIST changes: -ONDA4TAB9 PO
[2018-07-24] MEDS ORDERED: NS(*) 0.9% 1000 ML BAG 1,000 ML IV ONE (08:16)
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
[2018-07-24] MEDS ORDERED: DIPHTH/TETANUS/ACEL. PERTUSSIS IM ONE (08:20)
[2018-07-24] MEDS ORDERED: fentaNYL CITR 100 MCG/2 ML AMP IVP ONE ×2 (08:20→10:40)
[2018-07-24] MEDS ORDERED: IOPAMIDOL 76% 150 ML INFUS BTL 150 ML ONE (08:38)
[2018-07-24 08:58] VITALS: BP 142/102
[2018-07-24] MEDS ORDERED: METF-452 PO (09:01)
[2018-07-24 09:04] LABS: PLATELET COUNT, AUTOMATED 271 K/uL (150-450)
[2018-07-24 09:13] LABS: INR 0.92
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
[2018-07-24] MEDS ORDERED: OXYC-865 PO (11:19)
== END 2018-07-24 11:32 | disposition home or self-care (01) ==
LOC: ER 08:21
DX: S52.511A Displaced fracture of right radial styloid process, initial encounter for closed fracture (principal); R10.9 Unspecified abdominal pain
CPT/HCPCS: 36415; 70450; 71260; 72125; 73090; 73100; 74177; 80320; 81001; 83605; 83690; 84703; 85025; 85610; 85730; 96361; 96374; 99284; J3010; J7030; L3908; Q9967; 82040; 82247; 82310; 82374; 82435; 82565; 82947; 84075; 84132; 84155; 84295; 84450; 84460; 84520

== ENCOUNTER → 2018-07-24 | Outpatient (CLI) | payer OTHER ==
[2017-12-17 12:32] VITALS: BMI 40.6
[~2018-07-24] MED LIST changes: +ONDA4TAB9 PO
== END ==
LOC: AMB 07:49
PROVIDERS: ATTEND Nurse Practitioner
DX: M54.2 Cervicalgia (principal); G83.21 Monoplegia of upper limb affecting right dominant side; V49.9XXA Car occupant (driver) (passenger) injured in unspecified traffic accident, initial encounter
CPT/HCPCS: A0425; A0427

== ENCOUNTER 2018-07-27 14:19 | Emergency (ER) | payer OTHER ==
[2017-12-17 12:32] VITALS: Wt 105.9 kg
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
[2018-07-27] MEDS ORDERED: NS(*) 0.9% 1000 ML BAG 1,000 ML IV ONE ×2 (14:40→15:50)
[2018-07-27] MEDS ORDERED: DEXAMETHASONE SOD PHOS 10MG/ML IVP ONE (14:40)
[2018-07-27] MEDS ORDERED: METOCLOPRAMIDE 10 MG/2 ML SDV IVP ONE (14:40)
[2018-07-27] MEDS ORDERED: fentaNYL CITR 100 MCG/2 ML AMP IVP ONE (14:40)
[2018-07-27] MEDS ORDERED: diphenhydrAMINE 50 MG/ML VIAL IVP ONE (14:40)
[2018-07-27] MEDS ORDERED: KETOROLAC 30 MG/ML VIAL IVP ONE (14:40)
[2018-07-27 15:25] LABS: PLATELET COUNT, AUTOMATED 312 K/uL (150-450)
[2018-07-27] MEDS ORDERED: ONDA4TAB9 PO (16:57)
[2018-07-27 17:01] VITALS: BP 132/89
== END 2018-07-27 17:10 | disposition home or self-care (01) ==
LOC: ER 14:47
DX: R51 Headache (principal); M54.2 Cervicalgia; S06.0X9A Concussion with loss of consciousness of unspecified duration, initial encounter; V49.9XXA Car occupant (driver) (passenger) injured in unspecified traffic accident, initial encounter
CPT/HCPCS: 83690; 85025; 96361; 96374; 96375; 99284; J1100; J1200; J1885; J2765; J3010; J7030; 82040; 82247; 82310; 82374; 82435; 82565; 82947; 84075; 84132; 84155; 84295; 84450; 84460; 84520